=== PATIENT | female | born 1945 | race African-American/Black ===

== ENCOUNTER 2021-05-14 13:07 | Emergency (ER) | payer OTHER ==
[2021-05-14 13:20] VITALS: TEMP 98; BMI 42.5
[2021-05-14 14:45] LABS: BASO % 0.6 % (0-2.0); EOS % 1.2 % (0-4.5); HEMATOCRIT 38.9 % (32.4-45.2); HEMOGLOBIN 12.9 GM/dL (10.7-15.3); LYMPH % 23.4 % (8-40); MEAN CELL VOLUME 94.1 fl (80-96); MEAN PLT VOLUME 8.2 fl (7.5-11.1); MONO % 4.1 % (3.8-10.2); NEUT % 70.7 % (42.8-82.8); PLATELET COUNT 316 10^3/uL (134-434); RBC 4.14 M/mm3 (3.60-5.2); RDW 14.6 % (11.6-15.6); WHITE BLOOD COUNT 6.9 K/mm3 (4.0-10.0)
[2021-05-14 15:04] LABS: CALCIUM 9.5 mg/dL (8.5-10.1)
[2021-05-14 15:05] LABS: ALBUMIN 3.6 g/dl (3.4-5.0); BLOOD UREA NITROGEN 22.4 mg/dL (7-18)
[2021-05-14 15:08] LABS: CREATININE 1.3 mg/dL (0.55-1.3)
[2021-05-14 15:09] LABS: BILIRUBIN,TOTAL 0.8 mg/dL (0.2-1); TOT PROT 7.9 g/dl (6.4-8.2)
[2021-05-14 15:13] LABS: N-TERMINAL BNP 61.3 pg/ml (5-125)
[2021-05-14 16:22] LABS: EPI CELLS >36 /uL (0-25.1); HYALINE CASTS 13 /uL (0-3.1); URINE APPEARANCE TURBID; URINE BACTERIA 5002 /uL (0-1359); URINE BILIRUBIN NEGATIVE (NEGATIVE); URINE COLOR DK YELLOW; URINE GLUCOSE (UA) NEGATIVE (NEGATIVE); URINE KETONE TRACE (NEGATIVE); URINE LEUK ESTERASE 2+ (NEGATIVE); URINE NITRITE NEGATIVE (NEGATIVE); URINE PROTEIN TRACE (NEGATIVE); URINE RBC 32 /uL (0-23.9); URINE WBC 263 /uL (0-25.8)
[2021-05-14 20:03] VITALS: BP 118/74; PULSE 80
== END 2021-05-14 20:02 | disposition home or self-care (01) ==
LOC: JER 13:07
DX: I82.511 Chronic embolism and thrombosis of right femoral vein (principal)
CPT/HCPCS: 36415; 71046-TC-FY; 80053; 81003; 83880; 85025; 87086; 93005; 93010; 93971-TC; 99285-25